=== PATIENT | female | born 1990 | race Caucasian/White ===

== ENCOUNTER 2016-10-06 08:30 | Emergency (ER) | payer BC ==
[2016-10-06 08:45] VITALS: BP 117/93; PULSE 99; TEMP 98.6; BMI 28.3
[2016-10-06] MEDS ORDERED: IBUPROFEN 600 MG TABLET (FP) PO ONE (08:58)
[2016-10-06] MEDS ORDERED: IBUPROFEN 400 MG TABLET (FP) PO ONE (09:06)
--- NOTE | 2016-10-06 09:09 | PDOC ---
History of Present Illness - General Chief Complaint: Pain, Acute Stated Complaint: PAIN/ HIP, RT LEG Time Seen by Provider: 10/06/16 08:53 History Source: Patient Exam Limitations: No Limitations - History of Present Illness Initial Comments: 10/06/16 09:06 26 yr female no medical history states she has acute pain to her right inner thigh started in the middle of the night. Pt states she has been running lately and has had some clicking sounds in her right hip. Pt believes she may have rolled over on her hip while sleeping and caused the pain. no fever no chills no abd pain . Occurred: reports: this morning Severity: Yes: moderate Lower Extremity Pain Location: right: hip Method of Injury: Yes: unknown Lower Ext. Injury Location - Specific Injury Location Hips: right hip: pain (pain with hip abduction), bilateral hip: no evidence of injury, normal inspection Past History - Past Medical History Allergies/Adverse Reactions: Allergies Allergy/AdvReac Type Severity Reaction Status Date / Time No Known Allergies Allergy Verified 10/06/16 08:41 Home Medications: Ambulatory Orders NK [No Known Home Medication] 12/03/15 Anemia: No Asthma: No Cancer: No Cardiac Disorders: No CVA: No COPD: No CHF: No Dementia: No Diabetes: No GI Disorders: No Disorders: No HTN: No Hypercholesterolemia: No Liver Disease: No Seizures: No Thyroid Disease: Yes (hypo) - Psycho/Social/Smoking Cessation Hx Anxiety: No Suicidal Ideation: No Smoking Status: No Smoking History: Never smoked Have you smoked in the past 12 months: No Number of Cigarettes Smoked Daily: 0 Information on smoking cessation initiated: No Hx Alcohol Use: No Drug/Substance Use Hx: No Substance Use Type: None Review of Systems - Review of Systems Able to Perform ROS?: Yes Is the patient limited Mongolian proficient: No Constitutional: No: Symptoms Reported HEENTM: No: Symptoms Reported Respiratory: No: Symptoms reported Cardiac (ROS): No: Symptoms Reported ABD/GI: No: Symptoms Reported : No: Symptoms Reported Musculoskeletal: Yes: Symptoms Reported, See HPI Integumentary: No: Symptoms Reported Neurological: No: Symptoms reported *Physical Exam - Vital Signs Last Vital Signs Temp Pulse Resp BP Pulse Ox 98.6 F 99 H 18 117/93 100 10/06/16 08:42 10/06/16 08:42 10/06/16 08:42 10/06/16 08:42 10/06/16 08:42 - Physical Exam General Appearance: Yes: Nourished, Appropriately Dressed HEENT: positive: EOMI, OFELIA Gastrointestinal/Abdominal: positive: Normal Bowel Sounds, Soft. negative: Tender Lymphatic: negative: Adenopathy Musculoskeletal: positive: Normal Inspection, Other (tender to touch right inner thigh/groin at tendon , no hip pain or pelvic pain ) Extremity: positive: Normal Capillary Refill, Normal Inspection, Normal Range of Motion Medical Decision Making - Medical Decision Making 10/06/16 09:09 cc: pain to right inner thigh groin area ] pain with hip abduction skin clear no evidence of ingrown hair or abscess will give motrin xrays pt ambulatory 10/06/16 10:23 preliminary xray is negative for fracture will have radiology officialy read motrin , warm compresses ortho follow up no running until healed *DC/Admit/Observation/Transfer Diagnosis at time of Disposition: Muscle strain - Discharge Dispostion Disposition: HOME Condition at time of disposition: Good - Referrals Referrals: Ebenezer Thomas MD [Primary Care Provider] - Mark Roe MD [Staff Physician] - - Patient Instructions Additional Instructions: apply warm compresses to the area of pain every 3-4 hrs for 20 minutes take motrin 800mg every 6hrs for pain as needed follow with the orthopedist for follow up if pain persists beyond 1-3 days avoid any high impact sports until symptoms have resolved Return to ER for any fever, chills, redness to the area or any worsening symptoms
== END 2016-10-06 10:26 | disposition home or self-care (01) ==
LOC: JERFT 08:30
DX: S76.911A Strain of unspecified muscles, fascia and tendons at thigh level, right thigh, initial encounter (principal); X58.XXXA Exposure to other specified factors, initial encounter; Y93.9 Activity, unspecified; Y92.9 Unspecified place or not applicable; E03.9 Hypothyroidism, unspecified
CPT/HCPCS: 73523-TC; 84703; 99281-25